=== PATIENT | female | born 1950 | race Caucasian/White ===

== ENCOUNTER 2024-01-15 05:25 | Day surgery (SDC) | payer OTHER ==
[~2024-01-15] VITALS: Ht 152.4 cm; Wt 73.5 kg
[2024-01-15] MEDS ORDERED: ACETAMINOPHEN 500 MG TABLET ONE (05:38)
[2024-01-15] MEDS: ACETAMINOPHEN 500 MG TABLET PO ONE (05:50)
[2024-01-15 06:49] VITALS: O2SAT 99
[2024-01-15] MEDS ORDERED: CEFAZOLIN SOD 2 GM in D5W 50 ML IV ONE (07:00)
[2024-01-15] MEDS ORDERED: NS IRRIG SOLN 5000 ML IR ONE (07:20)
[2024-01-15] MEDS ORDERED: ONDANSETRON HCL 4 MG/2 ML VIAL ONE (07:20)
[2024-01-15] MEDS ORDERED: BUPIVACAINE /DEX PF 0.75% SPINAL 2 ML AMP INJ ONE (07:20)
[2024-01-15] MEDS ORDERED: LR 1,000 ML IV.SOLN IV ONE (07:20)
[2024-01-15] MEDS ORDERED: SEVOFLURANE 15 MIN GAS INH ONE (07:20)
[2024-01-15] MEDS ORDERED: TRANEXAMIC ACID 1,000 MG/10 ML VIAL ONE (07:20)
[2024-01-15] MEDS ORDERED: BUPIVACAINE /PF 0.25% 30 ML VIAL INJ ONE (07:20)
[2024-01-15] MEDS ORDERED: NS IRRIG SOLN 1000 ML IR ONE (07:20)
[2024-01-15] MEDS ORDERED: DEXAMETHASONE SOD PHOSPHATE 4 MG/ML VIAL ONE (07:20)
[2024-01-15] MEDS ORDERED: PROPOFOL 200MG/ 20ML VIAL (DIPRIVAN) IV ONE (07:20)
[2024-01-15] MEDS ORDERED: KETOROLAC TROMETHAMINE 30 MG VIAL ONE (07:20)
[2024-01-15] MEDS ORDERED: WATER FOR IRRIGATION,STERILE 1,000 ML IRRIG.SOLN IR ONE (07:20)
[2024-01-15] MEDS ORDERED: KETOROLAC TROMETHAMINE 30 MG VIAL IVP PRN (09:00)
[2024-01-15] MEDS ORDERED: MORPHINE 4 MG INJ. 4 MG/ML VIAL IVP PRN (09:00)
[2024-01-15] MEDS ORDERED: ONDANSETRON HCL 4 MG/2 ML VIAL IVP PRN ×2 (09:00→11:45)
[2024-01-15] MEDS ORDERED: ACETAMINOPHEN I.V. 1000 MG 100 ML IV ONE ×2 (09:00→09:44)
[2024-01-15] MEDS ORDERED: LACTULOSE 20 GM/30 ML UDC PO PRN (10:30)
[2024-01-15] MEDS ORDERED: DIPHENHYDRAMINE HCL 25 MG CAPSULE PO PRN (10:30)
[2024-01-15] MEDS ORDERED: METOCLOPRAMIDE HCL 10 MG/2 ML VIAL IVP PRN (10:30)
[2024-01-15] MEDS ORDERED: BISACODYL 10 MG/SUPPOSITORY RC PRN (10:30)
[2024-01-15] MEDS: METOCLOPRAMIDE HCL 10 MG/2 ML VIAL IVP PRN (10:45)
[2024-01-15] MEDS ORDERED: METOCLOPRAMIDE HCL 10 MG/2 ML VIAL ONE (10:45)
[2024-01-15] MEDS ORDERED: LORATADINE 10 MG TABLET PO PRN (11:00)
[2024-01-15] MEDS ORDERED: HYDROmorphone 1 MG/ML INJ. CARTRIDGE IVP PRN ×3 (11:00)
[2024-01-15] MEDS ORDERED: oxyCODONE HCL 5 MG TABLET PO PRN ×2 (11:00)
[2024-01-15] MEDS ORDERED: traMADol HCL HCL 50 MG TABLET (ULTRAM) PO PRN (11:00)
[2024-01-15] MEDS ORDERED: TAMSULOSIN HCL 0.4 MG CAP PO ONE (11:00)
[2024-01-15] MEDS: ONDANSETRON HCL 4 MG/2 ML VIAL ONE (11:14)
[2024-01-15] MEDS ORDERED: ceFAZolin SODIUM 2 GM in D5W 50 ML IV SCH (11:15)
[2024-01-15] MEDS ORDERED: HYDROmorphone 1 MG/ML INJ. CARTRIDGE ONE (11:52)
[2024-01-15] MEDS: HYDROmorphone 1 MG/ML INJ. CARTRIDGE IVP PRN (12:05)
[2024-01-15] MEDS ORDERED: ACETAMINOPHEN 500 MG TABLET PO ONE (15:00)
[2024-01-15 16:05] VITALS: BP_SYST 118; PULSE 70; RESP 18
[2024-01-15] MEDS ORDERED: SENNOSIDES/DOCUSATE SODIUM 1 TAB TABLET(SENOKOT-S) PO SCH (21:00)
[2024-01-15] MEDS ORDERED: ACETAMINOPHEN 500 MG TABLET PO SCH (22:00)
[2024-01-16] MEDS ORDERED: TAMSULOSIN HCL 0.4 MG CAP PO SCH (09:00)
[2024-01-16] MEDS ORDERED: ASPIRIN 81 MG TAB.CHEW PO SCH (09:00)
== END 2024-01-15 16:05 | disposition home or self-care (01) ==
LOC: SDS 05:25 → SMU 05:25 → SDS 16:05
PROVIDERS: ATTEND Orthopaedic Surgery
DX: M17.11 Unilateral primary osteoarthritis, right knee (principal); I10 Essential (primary) hypertension; E78.5 Hyperlipidemia, unspecified; E66.3 Overweight; Z68.31 Body mass index [BMI] 31.0-31.9, adult; Z79.899 Other long term (current) drug therapy
CPT/HCPCS: 87081; 27447; 97162; 64447; 97110; 97530; 97116; 88305; 88311; J3490 ×3; J0690; J0696; J1100; J1885; J2765; J2405; J2704; J1170; J7060 ×2; J7120; C1776 ×3; C1713 ×2; J0131